=== PATIENT | female | born 1955 ===

== ENCOUNTER 2018-10-09 09:42 | Outpatient (CLI) | payer SELFPAY | END 2018-10-09 09:43 | disposition home or self-care (01) | LOC: C.LAB 09:42 | DX: Z00.00 Encounter for general adult medical examination without abnormal findings (principal) ==

== ENCOUNTER 2018-10-31 08:37 | Outpatient (CLI) | payer OTHER, SELFPAY | END 2018-10-31 08:38 | disposition home or self-care (01) | LOC: C.CARD 08:37 | DX: I10 Essential (primary) hypertension (principal); Z12.11 Encounter for screening for malignant neoplasm of colon ==

== ENCOUNTER 2018-11-06 11:31 | Outpatient (CLI) | payer SELFPAY | END 2018-11-06 11:32 | disposition home or self-care (01) | LOC: C.LAB 11:31 | DX: Z12.11 Encounter for screening for malignant neoplasm of colon (principal) ==